=== PATIENT | female | born 1990 | race African-American/Black ===

== ENCOUNTER 2019-07-30 12:14 | Observation (INO) | payer OTHER, SELFPAY ==
[2019-07-30 12:36] VITALS: BP 124/63; PULSE 77
[2019-07-30 12:45] VITALS: BP 105/52; PULSE 75
[2019-07-30 13:00] VITALS: BP 123/66; PULSE 78
[2019-07-30 13:15] VITALS: BP 120/67; PULSE 86
--- NOTE | 2019-07-30 13:18 | OBADM ---
This patient, Kelley Armstrong, admitted to the OB room OB Post 117 for observation. Patient/family oriented to hospital policies and general routines including ID bracelet, bed and alarms, visiting hours, pain management, procedures, bathroom and other care routines, personal items, smoking policy, room service/diet, and visiting hours. Patient/Family are encouraged to report perceived risks to care and to ask questions if they do not understand what they are told or what they should do.
[2019-07-30 13:30] VITALS: BP 112/63; PULSE 79
[2019-07-30 13:39] VITALS: TEMP 36.4
[2019-07-30 13:52] LABS: Add Urine Microscopic? YES; Appearance Urine Clear (Clear); Bilirubin Urine Negative (Negative); Blood Urine 1+ (Negative); Color Urine Colorless (Yellow); Glucose Urine UA 2+ mg/dL (Negative); Ketones Urine Negative (Negative); Leukocyte Esterase Ur Negative LEU/UL (NEGATIVE); Mucus Urine Rare /lpf; Nitrate Urine Negative (Negative); Protein Urine Negative (Negative); Specific Grav Ur 1.006 (1.001-1.035); Squamous Epithelial Cell Urine Occasional /hpf (Few); Urobilinogen Urine Negative mg/dL (<2.0)
[2019-07-30] MEDS: ACETAMINOPHEN 500 MG TABLET 1000 MG PO (14:02)
--- NOTE | 2019-07-30 14:44 | PC.NURSE ---
1444-S.Ramón [facility] called, informed that pt states her back has not gotten better with the tylenol. UA results read. Order received for SVE and flexeril.
[2019-07-30 15:02] VITALS: BMI 31.6
[2019-07-30] MEDS: CYCLOBENZAPRINE HCL 10 MG TABLET PO (15:28)
--- NOTE | 2019-07-30 15:31 | PC.NURSE ---
1337-S.Ramón [facility] called, informed pt came in stating she had a small episode of spotting earlier today, none since shes been here. Pt showed be a picture of the spotting and it was a raison sized spot of red blood. Pt states she has lower back ache. NST is reactive with no contractions noted. Orders received.
--- NOTE | 2019-07-30 17:26 | PC.NURSE ---
1655-Yumiko [facility] called, informed pt states her back feels much better after the flexeril and is ready to go home. Discharge order received.
--- NOTE | 2019-08-02 07:48 | P.PNOB_ITS ---
OB - Triage/Final Diagnosis Visit Information Date of evaluation: 07/30/19 Reason for evaluation: other Comments/Additional reasons for admission: spotting Evaluation Laboratory results: Laboratory Tests 07/30/19 13:42 Urine Color Colorless Urine Appearance Clear Urine pH 7.0 Ur Specific [place] 1.006 Urine Protein Negative Urine Glucose (UA) 2+ H Urine Ketones Negative Ur Blood (Man) 1+ H Urine Nitrate Negative Urine Bilirubin Negative Urine Urobilinogen Negative Ur Leukocyte Esterase Negative Urine RBC 11-20 H Urine WBC 4-6 H Ur Squamous Epith Cells Occasional Hyaline Casts 1-2 Urine Mucus Rare
== END 2019-07-30 17:25 | disposition home or self-care (01) ==
PROVIDERS: Advanced Practice Midwife; Admitting Provider Obstetrics & Gynecology; Visit Provider Obstetrics & Gynecology
DX: O26.853 Spotting complicating pregnancy, third trimester (principal); Z3A.28 28 weeks gestation of pregnancy
CPT/HCPCS: 81001; 87086; A9270; G0378; G0379

== ENCOUNTER 2019-08-12 17:51 | Observation (INO) | payer OTHER, SELFPAY ==
[2019-08-12] VITALS (21 sets, daily range): BP systolic 118–138; BP diastolic 64–81; PULSE 77–105; TEMP 37.1–37.3; O2SAT 98–100; BMI 31.8
--- NOTE | 2019-08-12 18:28 | PC.NURSE ---
Updated Dr. Portillo on patient arrival to OB unit with complaint of back pain and contractions throughout the day 08/12/2019. Patient states that pain increased within the last 2 hours. Abdomen palpates soft. No contractions noted via TOCO monitoring. FHT WNL. Active movement audible and per patient. VSS. Patient history of labor with previous , labor was stopped and infant was delivered at 38 weeks. Orders for FFN, SVE, UA with reflex to culture given.
[2019-08-12 19:00] LABS: Add Urine Microscopic? YES; Appearance Urine Clear (Clear); Bacteria Urine Trace /hpf; Bilirubin Urine Negative (Negative); Blood Urine Negative (Negative); Color Urine Straw (Yellow); Glucose Urine UA 3+ mg/dL (Negative); Ketones Urine Negative (Negative); Leukocyte Esterase Ur Negative LEU/UL (Negative); Nitrate Urine Negative (Negative); Protein Urine Negative (Negative); RBC Urine 0-2 /hpf (0-2); Specific Grav Ur 1.007 (1.001-1.035); Squamous Epithelial Cell Urine Rare /hpf (Few); Urobilinogen Urine Negative mg/dL (<2.0); WBC Urine 0-3 /hpf
--- NOTE | 2019-08-12 19:03 | PC.NURSE ---
Updated Dr. Portillo on SVE. External OS 2, internal OS closed. Cervix is soft and posterior. Patient still reports intermittent back pain and visibly uncomfortable. Order for Terbutaline 0.25mg SQ ONCE received.
[2019-08-12] MEDS: TERBUTALINE SULFATE 1 MG/ML VIAL 0.25 MG SUB-Q (19:09)
[2019-08-12 19:26] LABS: Fetal Fibronectin Negative
--- NOTE | 2019-08-12 19:33 | PC.NURSE ---
Updated Dr. Portillo on patient negative FFN results and UA results. Patient states back pain is more tolerable after resting and terbutaline dose. Order given to monitor for 1 hour after terbutaline was administered and then patient may be discharge to home. Patient to follow-up this week in office.
--- NOTE | 2019-09-02 20:48 | PM.OBTRLD ---
OB - Triage/Final Diagnosis Visit Information Date of evaluation: 09/12/19 Evaluation Laboratory results: Laboratory Tests 08/12/19 08/12/19 18:47 18:47 Urine Color Straw Urine Appearance Clear Urine pH 6.0 Ur Specific [place] 1.007 Urine Protein Negative Urine Glucose (UA) 3+ H Urine Ketones Negative Ur Blood (Man) Negative Urine Nitrate Negative Urine Bilirubin Negative Urine Urobilinogen Negative Leukocyte Esterase Rfl Negative Urine RBC 0-2 Urine WBC 0-3 Ur Squamous Epith Cells Rare Urine Bacteria Trace Fibronectin Negative Final Diagnosis (1) False labor: Code(s): O47.9 - False labor, unspecified Status: Acute
== END 2019-08-12 20:15 | disposition home or self-care (01) ==
PROVIDERS: Admitting Provider Obstetrics & Gynecology; Visit Provider Obstetrics & Gynecology
DX: O47.9 False labor, unspecified (principal); Z3A.00 Weeks of gestation of pregnancy not specified
CPT/HCPCS: 81001; 82731; G0378; G0379; J3105

== ENCOUNTER 2019-08-17 13:12 | Observation (INO) | payer OTHER, SELFPAY ==
[2019-08-17] VITALS (7 sets, daily range): BP systolic 119–133; BP diastolic 50–77; PULSE 67–89; BMI 32.1
[2019-08-17 14:24] LABS: Add Urine Microscopic? YES; Appearance Urine Clear (Clear); Bacteria Urine Trace /hpf; Bilirubin Urine Negative (Negative); Blood Urine Negative (Negative); Color Urine Straw (Yellow); Glucose Urine UA 3+ mg/dL (Negative); Ketones Urine Negative (Negative); Leukocyte Esterase Ur Negative LEU/UL (Negative); Mucus Urine Rare /lpf; Nitrate Urine Negative (Negative); Protein Urine Negative (Negative); RBC Urine 0-2 /hpf (0-2); Specific Grav Ur 1.008 (1.001-1.035); Squamous Epithelial Cell Urine Rare /hpf (Few); Urobilinogen Urine Negative mg/dL (<2.0); WBC Urine 0-3 /hpf
[2019-08-17 14:45] LABS: Fetal Fibronectin Negative
[2019-08-17] MEDS: ACETAMINOPHEN 500 MG TABLET 1000 MG PO (16:00)
--- NOTE | 2019-09-04 12:54 | P.PNOB_ITS ---
OB - Triage/Final Diagnosis Evaluation Laboratory results: Laboratory Tests 08/17/19 08/17/19 14:15 14:15 Urine Color Straw Urine Appearance Clear Urine pH 6.0 Ur Specific [place] 1.008 Urine Protein Negative Urine Glucose (UA) 3+ H Urine Ketones Negative Ur Blood (Man) Negative Urine Nitrate Negative Urine Bilirubin Negative Urine Urobilinogen Negative Leukocyte Esterase Rfl Negative Urine RBC 0-2 Urine WBC 0-3 Ur Squamous Epith Cells Rare Urine Bacteria Trace Urine Mucus Rare Fibronectin Negative Final Diagnosis (1) False labor: Code(s): O47.9 - False labor, unspecified Status: Acute
== END 2019-08-17 16:00 | disposition home or self-care (01) ==
PROVIDERS: Advanced Practice Midwife; Admitting Provider Obstetrics & Gynecology; Visit Provider Obstetrics & Gynecology
DX: O47.03 False labor before 37 completed weeks of gestation, third trimester (principal); Z3A.30 30 weeks gestation of pregnancy
CPT/HCPCS: 81001; 82731; A9270; G0378; G0379

== ENCOUNTER 2019-09-05 00:45 | Observation (INO) | payer OTHER, SELFPAY ==
[2019-09-05] VITALS (7 sets, daily range): BP systolic 111–124; BP diastolic 64–83; PULSE 77–101; TEMP 36.1
--- NOTE | 2019-09-08 07:14 | PM.OBTRLD ---
OB - Triage/Final Diagnosis Visit Information Date of evaluation: 09/07/19 Reason for evaluation: threatened labor
== END 2019-09-05 02:21 | disposition home or self-care (01) ==
PROVIDERS: Admitting Provider Obstetrics & Gynecology; Visit Provider Obstetrics & Gynecology
DX: O47.03 False labor before 37 completed weeks of gestation, third trimester (principal); Z3A.33 33 weeks gestation of pregnancy
CPT/HCPCS: 84112; G0378; G0379

== ENCOUNTER 2019-09-14 11:38 | Observation (INO) | payer OTHER, SELFPAY ==
[2019-09-14] VITALS (13 sets, daily range): BP systolic 108–132; BP diastolic 56–77; PULSE 69–102; RESP 16; TEMP 36.8; BMI 34.9
--- NOTE | 2019-09-14 12:20 | OBADM ---
This patient, Kelley Armstrong, admitted to the OB room 116 at 1138 from MD office for observation for contractions. Patient/family oriented to hospital policies and general routines including ID bracelet, bed and alarms, visiting hours, pain management, procedures, bathroom and other care routines, personal items, smoking policy, room service/diet, and visiting hours. Patient/Family are encouraged to report perceived risks to care and to ask questions if they do not understand what they are told or what they should do.
[2019-09-14] MEDS: TERBUTALINE SULFATE 1 MG/ML VIAL 0.25 MG SUB-Q ×2 (12:51→13:48)
[2019-09-14 13:21] LABS: Add Urine Microscopic? YES; Appearance Urine Clear (Clear); Bacteria Urine Trace /hpf; Bilirubin Urine Negative (Negative); Blood Urine Negative (Negative); Color Urine Straw (Yellow); Glucose Urine UA Negative (Negative); Ketones Urine Negative (Negative); Leukocyte Esterase Ur 1+ LEU/UL (Negative); Mucus Urine Rare /lpf; Nitrate Urine Negative (Negative); Protein Urine Negative (Negative); RBC Urine 0-2 /hpf (0-2); Specific Grav Ur 1.008 (1.001-1.035); Squamous Epithelial Cell Urine Few /hpf (Few); Urobilinogen Urine Negative mg/dL (<2.0)
[2019-09-14] MEDS: NIFEdipine 10 MG CAPSULE PO (15:54)
[2019-09-14] MEDS: ACETAMINOPHEN 500 MG TABLET 1000 MG PO (15:56)
[2019-09-14] MEDS: CEPHALEXIN 500 MG CAPSULE PO (15:58)
--- NOTE | 2019-09-14 16:11 | PCCCNOTE ---
Per Care Coordination. Spoke with pt. over the phone to discuss advance directives. Pt. had questions regarding advance directives and was given information. She has been provided advance directive forms and advised to call Care Coordination if she has any questions. Pt. states understanding. Will follow.
--- NOTE | 2019-09-20 10:10 | PM.OBTRLD ---
OB - Triage/Final Diagnosis Evaluation Laboratory results: Laboratory Tests 09/14/19 13:12 Urine Color Straw Urine Appearance Clear Urine pH 7.0 Ur Specific [place] 1.008 Urine Protein Negative Urine Glucose (UA) Negative Urine Ketones Negative Ur Blood (Man) Negative Urine Nitrate Negative Urine Bilirubin Negative Urine Urobilinogen Negative Leukocyte Esterase Rfl 1+ H Urine RBC 0-2 Urine WBC 10-15 H Ur Squamous Epith Cells Few Urine Bacteria Trace Urine Mucus Rare Final Diagnosis (1) False labor: Code(s): O47.9 - False labor, unspecified Status: Acute
== END 2019-09-14 18:59 | disposition home or self-care (01) ==
LOC: ANHLDR 09-15 14:52 → ANHOBPP 09-15 14:52
PROVIDERS: Advanced Practice Midwife; Admitting Provider Obstetrics & Gynecology; Visit Provider Obstetrics & Gynecology
DX: O47.03 False labor before 37 completed weeks of gestation, third trimester (principal); Z3A.34 34 weeks gestation of pregnancy
CPT/HCPCS: 81001; 87086; 96372; A9270; G0378; G0379; J3105

== ENCOUNTER 2019-10-01 20:32 | Inpatient (IN) | payer OTHER, SELFPAY ==
[2019-09-28 15:29] VITALS: BMI 35.9
[2019-10-01] VITALS (15 sets, daily range): BP systolic 122–147; BP diastolic 60–94; PULSE 68–93; TEMP 36.9; O2SAT 98–100; BMI 35.2
--- NOTE | 2019-10-01 20:32 | LDADM ---
This patient, Kelley Armstrong, was admitted to Labor/Delivery/Recovery 107 on 10/01/19 at 20:32. Plans for labor, pain management and were discussed with patient. Patient/family oriented to hospital policies and general routines including ID bracelet, bed and alarms, visiting hours, pain management, procedures, bathroom and other care routines, personal items, smoking policy, room service/diet and guest tray routines, security routines, and visiting hours. Patient/Family are encouraged to report perceived risks to care and to ask questions if they do not understand what they are told or what they should do. See OBIX for further documentation.
[2019-10-01] MEDS: AMPICILLIN 2 GM/NS 100 ML 2 GM/100 ML BAG IVPB (23:14)
[2019-10-01 23:15] LABS: Basophils Percent Auto 0.2 % (0.2-1.2); Eosinophils Absolute Auto 0.1 K/mm3 (0-0.3); Eosinophils Percent Auto 0.6 % (0-4.4); Hematocrit 30.2 % (37.0-47.0); Hemoglobin 9.2 g/dL (12.0-15.0); Immature Granulocyte Absolute 0.44 K/mm3 (0.00-0.031); Lymphocytes Absolute Auto 1.89 K/mm3 (0.9-3.2); Lymphocytes Percent Auto 17.1 % (18.3-44.2); Mean Corpuscular HGB Conc 30.5 g/dl (32-36); Mean Corpuscular Hemoglobin 24.9 pg (26-34); Mean Corpuscular Volume 81.6 fl (80-100); Mean Platelet Volume 10.9 fl (7.4-10.4); Monocytes Absolute Auto 0.8 K/mm3 (0.1-0.6); Monocytes Percent Auto 6.9 % (2.6-8.5); Neutrophils Absolute Auto 7.9 K/mm3 (1.3-6.7); Neutrophils Percent Auto 71.2 % (45.5-73.1); Nucleated Red Blood Cells Perc 0.4 % (0.0-0.2); Platelet Count Result 218 k/mm3 (150-375); Red Cell Distribution Width 17.4 % (11.5-14.5); White Blood Count 11.1 K/mm3 (4.5-10.0)
[2019-10-01] MEDS: LACTATED RINGERS 1,000 ML 125 ML IV CONT ×2 (23:15→23:40)
--- NOTE | 2019-10-01 23:40 | WPDANESEPP ---
Anes - Eval Pre Procedure Procedure: Labor epidural Date/Time: 10/01/19 23:40 Surgeon: Bandar Preop Diagnosis: Abd pain with contractions Pre Op Diagnosis: Contractions Patient Data Age: 29 Gender: F Height: 5 ft 4 in Weight: 93 kg Last Vital Signs Pulse 74 10/01/19 23:31 BP 123/60 10/01/19 23:31 Allergies Allergy/AdvReac Type Severity Reaction Status Date / Time clonidine Allergy Severe Anaphylactic Verified 07/30/19 14:57 Shock folic acid Allergy Hives Verified 07/30/19 14:58 [From [facility]] Iodinated Contrast Media Allergy Hives Verified 09/14/19 11:59 iron [From [facility]] Allergy Hives Verified 09/14/19 12:04 vitamins without Allergy Hives Verified 07/30/19 14:58 vitamin A [From [facility]] Home Medications Medication Instructions Recorded Confirmed Type duloxetine 20 mg PO BID 09/14/19 10/01/19 History ferrous sulfate 325 mg PO DAILY 09/14/19 10/01/19 History Laboratory Tests 10/01/19 10/01/19 10/01/19 23:08 23:08 23:09 WBC 11.1 K/mm3 H K/mm3 (4.5-10.0) RBC 3.70 M/mm3 L M/mm3 (4.2-5.4) Hgb 9.2 g/dL L g/dL (12.0-15.0) Hct 30.2 % L % (37.0-47.0) MCV 81.6 fl fl (80-100) MCH 24.9 pg L pg (26-34) MCHC 30.5 g/dl L g/dl (32-36) RDW 17.4 % H % (11.5-14.5) Plt Count 218 k/mm3 k/mm3 (150-375) MPV 10.9 fl H fl (7.4-10.4) Immature Gran % (Auto) 4.0 % H % (0-0.5) Neut % (Auto) 71.2 % % (45.5-73.1) Lymph % (Auto) 17.1 % L % (18.3-44.2) Boyd % (Auto) 6.9 % % (2.6-8.5) Eos % (Auto) 0.6 % % (0-4.4) Baso % (Auto) 0.2 % % (0.2-1.2) Lymph # (Auto) 1.89 K/mm3 K/mm3 (0.9-3.2) Boyd # (Auto) 0.8 K/mm3 H K/mm3 (0.1-0.6) Eos # (Auto) 0.1 K/mm3 K/mm3 (0-0.3) Baso # (Auto) 0.0 K/mm3 K/mm3 (0.0-0.1) Abs Immat Gran (auto) 0.44 K/mm3 H K/mm3 (0.00-0.031) Absolute Neuts (auto) 7.9 K/mm3 H K/mm3 (1.3-6.7) Absolute Nucleated RBC 0.0 K/mm3 K/mm3 (0.0-0.012) Nucleated RBC % 0.4 % H % (0.0-0.2) Urine Opiates Screen Pending Urine Methadone Screen Pending Ur Barbiturates Screen Pending Ur Phencyclidine Scrn Pending Ur Amphetamine Screen Pending U Benzodiazepines Scrn Pending Urine Cocaine Screen Pending U Cannabinoids Screen Pending RPR Pending Patient hx anesthesia problems: none Family hx anesthesia problems: none PMFSH Past Medical History Medical History Obesity Smoker Social History Social History Smoking status: Former smoker Tobacco type: cigarettes Second hand tobacco smoke exposure: No Alcohol intake: never Substance use: never Substance use type: does not use Living arrangements: with family Occupation/Education: other Gender identity (if verbalized by the patient): Female Spiritual care concerns: No Agree to blood products: Yes Exam Day of Procedure 10/01/19 23:40 Patient weight: obese Airway: Mallampati scale class II Neurological: alert and oriented
[2019-10-01 23:53] LABS: Amphetamine Screen Urine Negative (Negative); Barbiturate Screen Urine Negative (Negative); Benzodiazepines Screen Urine Negative (Negative); Cannabinoid Screen Urine Negative (Negative); Cocaine Screen Urine Negative (Negative); Methadone Screen Urine Negative (Negative); Opiate Screen Urine Negative (Negative); Phencyclidine Screen Urine Negative (Negative)
[2019-10-02] VITALS (58 sets, daily range): BP systolic 105–147; BP diastolic 57–94; PULSE 7–191; RESP 16–85; TEMP 36.6–36.9; O2SAT 94–100
[2019-10-02] MEDS: OXYTOCIN 30 UNITS/NS 500 ML 30 UNITS/500 ML BAG 999 UNITS IV CONT (02:35)
--- NOTE | 2019-10-02 02:44 | PM.OBPRVD ---
OB - Delivery Note Procedure Delivery date: 10/02/19 Procedure: vaginal delivery Intrapartal events: None Delivery monitor: external FHT and external uterine Route of delivery: Laceration description: None Estimated blood loss (mL): 230 Anesthesia type: Epidural Disposition: other () Baby Date of : 10/02/19 Time of : 02:30 Weeks of gestation at delivery: 37 Infant gender: Female presentation: vertex position: Left Occiput Anterior Placenta delivery description: Spontaneous cord vessel description: 3 Vessels score one minute: 8 score five minutes: 9 Narrative: mother and baby in stable condition
[2019-10-02] MEDS: OXYTOCIN 30 UNITS/NS 500 ML 30 UNITS/500 ML BAG 125 UNITS IV CONT (03:11)
[2019-10-02] MEDS: BENZOCAINE 20% AER SPR (*SP) 56 GM CAN 1 SPRAY TOPICAL (04:06)
[2019-10-02] MEDS: WITCH HAZEL 40 PADS 1 PAD TOPICAL (04:06)
--- NOTE | 2019-10-02 05:26 | OBPPTRN ---
Patient transferred to post room #286 via wheelchair with baby in bassinet. No support person present. Oriented to unit, room, information board, rooming in, admission packet and security measures. Patient verbalizes understanding.
[2019-10-02] MEDS: IBUPROFEN 600 MG TABLET PO ×3 (05:46→19:59)
[2019-10-02] MEDS: DOCUSATE SODIUM 100 MG CAPSULE PO ×2 (07:30→15:50)
[2019-10-02] MEDS: ACETAMINOPHEN 325 MG TABLET 650 MG PO (07:30)
[2019-10-02] MEDS: DULOXETINE HCL 20 MG CAPSULE.DR PO ×2 (07:30→17:45)
--- NOTE | 2019-10-02 07:30 | PC.NURSE ---
Consulted with patient, mother reports she is breast and bottle feeding due to her choice. is sleepy at times and has some difficulties maintaining deep latch. Reviewed infant feeding cues, frequencies, duration of feedings, feeding elimination flow sheet, and signs of adequate intake. Demonstrated stimulation techniques to wake for feeding. Assisted with to breast. Reviewed positioning/alignment in football, holding breast in C hold and guided asymmetrical latch on. Mother's nipple will draw back with holding breast. was able to latch correctly. nursed eagerly with steady draws for short bursts followed with long pausing. had more pausing than nursing. Reviewed signs of a correct latch, effective nursing and suck swallow ratio. Nipple care reviewed. Advised to stimulate to keep infant awake and nursing effectively to assist with maintaining deep latch and to increase intake. Suggested mother initiate pumping to stimulate milk supply. Mother states she would like to rest and will call out when ready to pump. Instructed mother to call out for RN assistance if she is unable to latch for feeding or she has discomfort with nursing. Instructed feeding should be initiated three hours from start of last feeding or if feeding cues are noted before. Mother voiced understanding of information shared.
[2019-10-02 07:40] LABS: Rapid Plasma Reagin Non-Reactive (NonReactive)
[2019-10-03 05:01] LABS: Hematocrit 27.4 % (37.0-47.0); Hemoglobin 8.3 g/dL (12.0-15.0)
--- NOTE | 2019-10-03 07:34 | PM.OBPNVD ---
OB - PN: Subj Subjective Date/time seen: 10/03/19 07:34 Patient comments: no complaints, pain well controlled, incisional pain, tolerating diet and flatus present OB - PN: Obj Data Labs CBC & Chem 7: 10/03/19 04:53 Labs: Laboratory Results - last 24 hr 10/01/19 10/03/19 23:08 04:53 Hgb 8.3 L Hct 27.4 L RPR Non-reactive OB - PN A/P Plan day: 1 Plan: routine care Comments: No problems, routine care Time Spent With Patient Time: Total time spent is greater than 50% in coordination of care (as documented) at patient's floor/unit and/or counseling patient: Exam Const: General: comfortable, no acute distress and alert Resp: Effort & Inspection: normal respiratory effort Auscultation: no crackles, no rales and no rhonchi Cardio: Rate: regular rate Heart sounds: no click, no murmurs and no rubs GI: Inspection: non-distended GI Palp: No Tenderness to palpation present (GI) Auscultation: normal bowel sounds Other: Incision - CDI Extrem: General: normal to inspection, no pedal edema and no calf tenderness
[2019-10-03 08:00] VITALS: BP 129/68; PULSE 60; RESP 18; TEMP 36.8; O2SAT 100
--- NOTE | 2019-10-03 08:30 | PC.NURSE ---
Upon entering mother is pumping one breast with electric pump. Discussed pump and most efficient use of p ump is t do both breasts at the same time. . Instructions given on breast pump care and usage, pumping schedule, nipple care, and collection and storage of breast milk. Encouraged [id number], breast massage and manual expression to stimulate supply. . Assessed patient for correct flange size 27mm, placement and draw. Patient verbalizes and demonstrates understanding of instructions.
[2019-10-03] MEDS: DULOXETINE HCL 20 MG CAPSULE.DR PO ×2 (08:58→17:55)
[2019-10-03] MEDS: IBUPROFEN 600 MG TABLET PO (08:58)
[2019-10-03] MEDS: DOCUSATE SODIUM 100 MG CAPSULE PO (08:58)
--- NOTE | 2019-10-03 10:16 | WPDANLDPN2 ---
Anes-Prog Note L&D Date/Time: 10/03/19 10:16 Comfortable throughout: labor and delivery Neuraxial method: epidural Epidural/Spinal procedure site: clean & non-tender Neuro status: Neuro function grossly intact. Cardiovascular status: normal Respiratory status: normal Airway patency: baseline Mental status: baseline Post-Op hydration status: normal Vital Signs: Last Vital Signs Temp 36.8 C 10/03/19 08:00 Pulse 60 10/03/19 08:00 Resp 18 10/03/19 08:00 BP 129/68 10/03/19 08:00 Pulse Ox 100 10/03/19 08:00 Post-procedural complaints: none Patient feedback: Patient satisfied with anesthetic care.
--- NOTE | 2019-10-03 16:45 | PCCCNOTE ---
Per Care Coordination. Spoke with pt. this morning to discuss discharge planning. Pt.'s discharge plan is to return home with her other children. This baby is the pt.'s fourth child. Pt. states that she lives alone with the children and has no local family or friend support. Pt. uses [employer] to assist with watching the children. [employer] Family's are currently watching the other three children while pt. is in hospital. Pt. lives in public housing and is current with [facility]. She states she has everything she needs for the baby at home. The only item she lists she needs is diapers. Pt.'s nurse was informed. Pt. has a car seat and will have it at time of discharge. She states her car is in the shop but someone will come to pick her up at time of discharge. Pt. has HX of anxiety, depression, and PTSD. She has been off of her meds during her but states she will call and set an appointment with Josefa Ayala, a nurse practitioner she sees. Pt.'s FOB is Gordo Molina, he does not live with pt. and may not be involved once pt. returns home. Pt. has been given resources for new mothers and denies any discharge needs at this time. Will follow.
[2019-10-03 20:30] VITALS: BP 104/61; PULSE 70; RESP 16; TEMP 37.1; O2SAT 97
--- NOTE | 2019-10-04 07:30 | PM.OBPNVD ---
OB - PN: Subj Subjective Date/time seen: 10/04/19 07:30 OB - PN: Obj Data Labs CBC & Chem 7: 10/03/19 04:53 OB - PN A/P Plan day: 2 Plan: discharge home Time Spent With Patient Time: Total time spent is greater than 50% in coordination of care (as documented) at patient's floor/unit and/or counseling patient: Review of Systems Review of Systems: All systems reviewed & are unremarkable except as noted in HPI and below Constitutional: Constitutional: Reports as per HPI Exam Const: General: comfortable Psych: Appearance: grossly normal Affect: normal affect Attitude: cooperative
[2019-10-04 08:35] VITALS: BP 120/79; PULSE 65; RESP 18; TEMP 36.6; O2SAT 99
[2019-10-04] MEDS: DULOXETINE HCL 20 MG CAPSULE.DR PO (09:15)
--- NOTE | 2019-10-04 09:15 | PC.NURSE ---
Patient received instruction on viewing the discharge video Mother & Baby Care, The First Two Weeks online. Patient was given the opportunity and encouraged to ask questions. Patient verbalized understanding of information shared and has been given the mother/baby guide for home reference.
--- NOTE | 2019-10-04 10:00 | PCDIET ---
Consult with pt., mother states she has pumped a few times. Discussed the importance of stimulation and emptying the breast to bring her milk in and keep supply up. Mother is concerned she will not have the time to devote to pumping with three other small children at home and no other help. Mother states she wishes to give infant breastmilk. Mother reports she has a Medela pump and discussed how this set up with adapt to her pump. Suggested mother attempt to breast each feeding for 5 minutes, if does not latch or feed then supplement followed with 10 minutes of pumping. Reviewed WIC, mother states she was on WIC with last child. Phone number provided and formula give to bridge to appointment. Mother is feeding as required and waking to feed if needed. Infant is currently meeting outcomes for weight, output, jaundice and feeding frequencies. Mother states she feels confident to continue current feeding plan at t home. Reviewed transition to breast milk, signs of adequate intake, and engorgement/relief. Instructed to call ICP if intake/output less than required. Reviewed regular medications mother is taking. Information provided per Zaria. Reviewed community resources on the [facility] website and in the Mom/Baby guide. Information on outpatient services provided. Mother has no further questions at this time.
--- NOTE | 2019-10-04 11:15 | PC.NURSE ---
Patient knows her [facility] follow up appointment is scheduled for tomorrow 10/05/19 @ 0900. Patient informed that if she is unable to get transportation to her appointment she is to call to notify us/reschedule. She has the [facility] phone number on her discharge papers to call if she is unable to make it. Patient verbalized understanding.
--- NOTE | 2019-10-06 07:13 | P.DS_ITS ---
DS: Admitting Diagnosis Admitting Diagnosis Admitting Diagnosis: Encounter for supervision of normal , unspecified, third trimester OB - DS: Summary OB Procedures : None OB Procedures Intrapartum: Spontaneous Vag Delivery OB Procedures: : None Time Spent with Patient Time attestation: Total time spent providing and/or coordinating discharge services: Discharge Plan Discharge Consulting providers: Erna Melgar Discharging Clinician: Erna Melgar Patient Disposition: Home, Self-Care Activity: pelvic rest Diet: regular Discharge Instructions: Education: Mom and Baby Guide Given to: Mother Follow-Up: Call your delivering provider's office for an appointment to be seen in: 4 Weeks Mom and baby should come to the [facility] for the follow-up appointment. Appointment Date/Time: October 05, 2019 at 9:00 am What to expect at your follow-up visit: Physical Assessment Call [phone] if you are unable to keep your appointment time. BREAST CARE: 1. Wear a snug supportive bra. 2. For engorgement discomfort: Breast Feeding: A. Apply warm moist washcloths B. Express milk as needed to relieve engorgement C. Wear loose clothing Bottle Feeding: A. May apply ice packs 3. For sore nipples: A. Identify correct latch-on B. Apply warm moist washcloths before and after nursing C. Air dry nipples after nursing D. May apply Lansinoh cream to nipples EPISIOTOMY/PERINEAL CARE: 1. Until bleeding stops, use your archana bottle after urinating 2. Change your pad frequently throughout the day 3. You may take sitz baths several times a day (fill your bathtub with warm water and soak for 20 minutes.) Do NOT bathe in the water 4. No tub baths until seen by your physician - You may shower ACTIVITY: 1. Rest as much as possible. 2. Do not exercise or lift anything heavier than your baby (such as laundry or other children.) 3. Avoid stairs or driving as much as possible. 4. Do not put anything into the vagina. No douching, tampons, or sexual activity until seen by physician. NOTIFY PHYSICIAN IF YOU HAVE ANY QUESTIONS OR IF ANY OF THE FOLLOWING SYMPTOMS OCCUR: 1. If your vaginal bleeding becomes foul smelling. 2. If your vaginal bleeding becomes more heavy than a period or if your bleeding changes from pink to bright red. However, you may pass an occasional walnut- sized clot once or twice for the first week . 3. If you experience a sharp, shooting pain in you calves. 4. If you discover a hard, reddened area on your breast or if you experience flu-like symptoms. DIET: 1. Eat regular, well-balanced meals. 2. Drink plenty of fluids daily. If , drink to thirst. Stand Alone Forms: General Discharge Information Follow-up/Referrals: Erna Melgar CNM [Certified Nurse [employer] Photo Mask Maker] - 4 Weeks Discharge Medications: Continued ferrous sulfate 325 mg (65 mg iron) Tablet 325 mg PO DAILY RF: 0 duloxetine 20 mg capsule,delayed release(DR/EC) 20 mg PO BID RF: 0 Date of admission: 10/01/19 20:32 Primary Care Provider: PHYSICIAN,SPLITTER MACHINE Admitting Provider: Latasha Portillo Discharge Date/Time: 10/04/19 11:15 Attending physician on admission: Latasha Portillo
== END 2019-10-04 11:15 | disposition home or self-care (01) | DRG 560 ==
LOC: ANHLDR 10-02 05:09 → ANHOB2 10-02 05:27
PROVIDERS: Advanced Practice Midwife; Admitting Provider Obstetrics & Gynecology; Visit Provider Obstetrics & Gynecology
DX: O99.214 Obesity complicating childbirth (principal); Z37.0 Single live birth; Z3A.37 37 weeks gestation of pregnancy; O36.8330 Maternal care for abnormalities of the fetal heart rate or rhythm, third trimester, not applicable or unspecified; E66.9 Obesity, unspecified
CPT/HCPCS: 36415; 80307; 85014; 85018; 85025; 86592; 86850; 86900; 86901; A9270; J0290; J2590; J2795; J7120

== ENCOUNTER → 2020-09-11 07:04 | Outpatient (CLI) | payer OTHER, SELFPAY ==
[2020-09-11 18:21] LABS: SARS-CoV-2 RNA PCR Negative
== END ==
PROVIDERS: Visit Provider Obstetrics & Gynecology
DX: R68.89 Other general symptoms and signs (principal); Z20.822 Contact with and (suspected) exposure to COVID-19
CPT/HCPCS: C9803; U0003; U0005

== ENCOUNTER 2022-07-08 11:08 | Emergency (ER) | payer OTHER, SELFPAY ==
[2022-07-08] VITALS (9 sets, daily range): BP systolic 120–130; BP diastolic 68–84; PULSE 54–80; RESP 17–20; TEMP 37.2; O2SAT 98–100
--- NOTE | ~2022-07-08 | CT_ITS ---
EXAMINATION: CT abdomen pelvis wo con DATE: 07/08/2022 13:47 INDICATION: Flank pain TECHNIQUE: Computed tomography (CT) of the abdomen and pelvis was performed without intravenous contr ast. Automated exposure control and iterative reconstruction technique were employed. The dose-length product was 405.02 mGy-cm. COMPARISON: None FINDINGS: Mild discoid atelectasis/scarring at the left lung base. Heart size is normal. No pericardial or pleu ral effusion. Cholecystectomy clips the gallbladder fossa. Liver, spleen, pancreas and bilateral adre nal glands are normal. 1.1 cm left renal cyst. Otherwise normal bilateral kidneys and ureters are nor mal with no urolithiasis, hydroureteronephrosis or perinephric/ureteral stranding. No bowel obstructi on. Bilateral adnexal cysts measuring 1.5 cm on the right and 2.5 cm on the left. Small amount of michaela e fluid in the cul-de-sac. No abscess or free intraperitoneal gas. Anteverted uterus is normal. Mild diffuse wall thickening of the bladder most likely due to nearly decompressed state. Bones are unrema rkable. IMPRESSION: 1. Bilateral adnexal cysts/follicles and small amount of likely physiologic free fluid in the pelvis. No other acute intra-abdominal/pelvic process. 2. Mild diffuse wall thickening of the bladder likely due to nearly decompressed state but would jaleesa elate with urinalysis to exclude urinary tract infection. Reviewed, dictated and finalized at location A. R [employer] IMPRESSION: 1. Bilateral adnexal cysts/follicles and small amount of likely physiologic michaela e fluid in the pelvis. No other acute intra-abdominal/pelvic process. 2. Mild diffuse wall thickening of the bladder likely due to nearly decompresse d state but would correlate with urinalysis to exclude urinary tract infection.
--- NOTE | 2022-07-08 11:11 | ECG_ITS ---
Measurements Intervals Lena Rate: 55 P: 52 CA: 172 QRS: 52 QRSD: 80 T: 15 QT: 397 QTc: 382 Interpretive Statements SINUS BRADYCARDIA NO PREVIOUS ECG AVAILABLE FOR COMPARISON Electronically Signed On 07-08-2022 15:03:40 PART TIME by Richard Garcia M.D.
--- NOTE | 2022-07-08 11:39 | PC.NURSE ---
THIS RN OBTAINED ORTHO'S AT THIS TIME. PT WAS 2 ASSIST AT BEDSIDE FOR STANDING PORTION, AND SWAYING SIDE TO SIDE UNABLE TO MAINTAIN STANDING BY SELF.
[2022-07-08 12:05] LABS: Basophils Percent Auto 0.6 % (0.2-1.2); Eosinophils Absolute Auto 0.1 K/mm3 (0-0.3); Hematocrit 32.4 % (37.0-47.0); Hemoglobin 9.9 g/dL (12.0-15.0); Immature Granulocyte Absolute 0.01 K/mm3 (0.00-0.031); Immature Granulocyte Percent A 0.3 % (0-0.5); Lymphocytes Absolute Auto 1.44 K/mm3 (0.9-3.2); Lymphocytes Percent Auto 41.4 % (18.3-44.2); Mean Corpuscular HGB Conc 30.6 g/dl (32-36); Mean Corpuscular Hemoglobin 25.3 pg (26-34); Mean Corpuscular Volume 82.9 fl (80-100); Mean Platelet Volume 11.5 fl (7.4-10.4); Monocytes Absolute Auto 0.3 K/mm3 (0.1-0.6); Monocytes Percent Auto 8.6 % (2.6-8.5); Neutrophils Absolute Auto 1.6 K/mm3 (1.3-6.7); Neutrophils Percent Auto 47.1 % (45.5-73.1); Platelet Count Result 271 k/mm3 (150-375); Red Blood Count 3.91 M/mm3 (4.2-5.4); Red Cell Distribution Width 18.2 % (11.5-14.5); White Blood Count 3.5 K/mm3 (4.5-10.0)
[2022-07-08 12:13] LABS: Alanine Aminotransferase 20 U/L (6-35); Albumin Level 4.8 g/dL (3.5-5.1); Alkaline Phosphatase 87 U/L (38-126); Anion Gap 6 mmol/L (8-16); Aspartate Amino Transferase 30 U/L (14-36); Bilirubin,Total 0.5 mg/dL (0.2-1.3); Blood Urea Nitrogen 3 mg/dL (7-17); Carbon Dioxide 26 mmol/L (22-30); Chloride 106 mmol/L (98-107); Estimated CRCL calculation 143 ml/min; Estimated Glomerular Filt Rate > 60; Glucose 83 mg/dL (65-110); INR 1.1; Potassium 3.5 mmol/L (3.4-5.0); Prothrombin Time 13.5 Seconds (11.1-14.7); Sodium 138 mmol/L (137-145)
[2022-07-08 12:14] LABS: Partial Thromboplastin Time 31.9 SECONDS (22.3-36.8)
[2022-07-08 13:34] LABS: Appearance Urine Clear (Clear); Bilirubin Urine Negative (Negative); Blood Urine Negative (Negative); Color Urine Yellow (Yellow); Glucose Urine UA Negative (Negative); Ketones Urine Trace mg/dL (Negative); Leukocyte Esterase Ur Negative LEU/UL (Negative); Nitrate Urine Negative (Negative); Protein Urine Negative (Negative); Specific Grav Ur 1.015 (1.001-1.035); pH Urine 8.5 (5.0-9.0)
[2022-07-08 13:45] LABS: Mucus Urine Rare /lpf; RBC Urine 0-2 /hpf (0-2); Squamous Epithelial Cell Urine Rare /hpf (Few); WBC Urine 0-3 /hpf
[2022-07-08 13:46] LABS: Add Urine Microscopic? YES
--- NOTE | 2022-07-08 14:13 | ED.GENADULT ---
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 With the complaints of feeling dizzy. Patient states that she woke up dizzy and was at the doctor's office was about to pass out. She denies any chest pain, shortness of breath. Denies any headache, nausea or vomiting. She states that she has ongoing abdominal pain in the mid epigastric area and she is scheduled to see a GI for that. She states her stools are black most likely from the iron but no blood Onset (ago): hour(s) (1) Location: abdomen Radiation: non-radiation Severity: mild Quality: aching Pain Consistency: constant Relieving factors: none Exacerbating factors: none Associated symptoms: denies other symptoms Related Data Home Medications Medication Instructions Recorded Confirmed duloxetine 20 mg capsule,delayed 20 mg PO BID 09/14/19 10/01/19 release ferrous sulfate 325 mg (65 mg 325 mg PO DAILY 09/14/19 10/01/19 iron) tablet Allergies Allergy/AdvReac Type Severity Reaction Status Date / Time clonidine Allergy Severe Anaphylactic Verified 07/08/22 11:30 Shock folic acid Allergy Hives Verified 07/08/22 11:30 [From Prenatabs OBN] Iodinated Contrast Media Allergy Hives Verified 07/08/22 11:30 iron [From Prenatabs OBN] Allergy Hives Verified 07/08/22 11:30 vitamins without Allergy Hives Verified 07/08/22 11:30 vitamin A [From Prenatabs OBN] Review of Systems Review of Systems: All systems reviewed & are unremarkable except as noted in HPI and below Constitutional: Constitutional: Reports no additional constitutional complaints Eyes: Eyes: Reports no additional eye complaints ENT: Reports as per HPI Cardiovascular: Cardiovascular: Reports no additional cardiovascular complaints Respiratory: Respiratory: Reports no additional respiratory complaints Gastrointestinal: Gastrointestinal: Reports as per HPI Musculoskeletal: Musculoskeletal: Reports no additional musculoskeletal complaints PMFSH Past Medical History Medical History Obesity Smoker Social History Social History Smoking status: Former smoker Tobacco type: cigarettes Second hand tobacco smoke exposure: No Alcohol intake: never Substance use: never Substance use type: does not use Living arrangements: with family Occupation/Education: other Gender identity (if verbalized by the patient): Female Spiritual care concerns: No Agree to blood products: Yes Exam Narrative: GENERAL: Well-appearing, well-nourished, and in no acute distress. HEAD: Normocephalic, atraumatic. EYES: PERRLA and EOMI. ENT: Nares clear, no rhinorrhea or epistaxis. Mucous membranes moist. NECK: Supple. CHEST: Clear to auscultation. No respiratory distress. HEART: Regular rate and rhythm. No murmur heard. Normal peripheral pulses. ABDOMEN: Soft, nontender, nondistended, normal active bowel sounds. EXTREMITIES: Normal range of motion. No edema. SKIN: Warm, dry, no rash. NEURO: No focal deficits. Alert and oriented x3. PSYCH: Normal mood and affect. Course Course Emergency Course: 32-year-old with a history of recurrent dizziness was dizzy this morning was about to pass out however by the time she came to the ER her symptoms have much resolved she denied any headache or chest pain or has ongoing abdominal pain do basic abdominal work-up including EKG and a CT Of the abdomen. Vital Signs Vital signs: Vital Signs Temperature 37.2 C 07/08/22 11:21 Pulse Rate 55 L 07/08/22 11:21 Respiratory Rate 20 07/08/22 11:21 Blood
== END 2022-07-08 14:35 | disposition home or self-care (01) ==
PROVIDERS: Physician Assistant; Emergency Provider Family Medicine
DX: R42 Dizziness and giddiness (principal); R10.13 Epigastric pain; R00.1 Bradycardia, unspecified
CPT/HCPCS: 36415; 74176; 80053; 81001; 81025; 85025; 85610; 85730; 86850; 86900; 86901; 93005; 99284